=== PATIENT | female | born 1975 | race Caucasian/White ===

== ENCOUNTER 2019-12-25 10:57 | Inpatient (IN) | payer OTHER ==
[~2019-12-25] VITALS: Ht 157.5 cm; Wt 76.2 kg
[2019-12-25 11:10] VITALS: Ht 157.5 cm; Wt 76.2 kg
[2019-12-25 14:47] LABS: BASOPHIL % 1.6 % (0-2); PLATELET COUNT 193 x10^3mcL (130-400); RED CELL DISTRIBUTION WIDTH 13.4 % (11.5-14.5)
[2019-12-25 15:00] LABS: ALKALINE PHOSPHATASE 54 U/L (46-116); ALT/SGPT 15 U/L (14-59); AST/SGOT 5 U/L (15-37); BILIRUBIN TOTAL 0.8 mg/dL (0.20-1.00); CALCIUM 8.8 mg/dL (8.5-10.1); CARBON DIOXIDE 20.5 mmol/L (21-32); CHLORIDE SERUM 109 mmol/L (98-107); CREATININE SERUM 0.5 mg/dL (0.6-1.0); GFR1 > 60 mL/min; GLUCOSE SERUM 83 mg/dL (74-106); LIPASE 90 IU/L (73-393); POTASSIUM SERUM 3.5 mmol/L (3.5-5.1); SODIUM SERUM 142 mmol/L (136-145)
[2019-12-25 15:04] LABS: ALBUMIN 3.3 g/dL (3.4-5.0); TOTAL PROTEIN, SERUM 6.1 g/dL (6.4-8.2)
[2019-12-25 16:12] LABS: microscopic required? YES; urine erythrocyte 3+ (NEGATIVE)
[2019-12-25 16:18] LABS: CHOLESTEROL/HDL RATIO 2.9
[2019-12-25 16:40] LABS: AMPHETAMINE QUAL UR NONE DETECTED (See below)
[2019-12-25 17:24] LABS: T3 TOTAL 1.08 ng/mL
[2019-12-25 18:07] VITALS: BP 106/68
[2019-12-25 19:00] LABS: FREE T4 1.41 ng/dL (0.76-1.46); FREE THYROXINE INDEX 3.4 ug/dL (1.4-4.5); T4(THYROXINE) 11.2 ug/dL (4.7-13.3)
[2019-12-25 20:08] VITALS: BP 100/64
[2019-12-26 05:12] VITALS: BP 97/68
[2019-12-26 06:52] LABS: CARBON DIOXIDE 18.7 mmol/L (21-32); CHLORIDE SERUM 116 mmol/L (98-107); CREATININE SERUM 0.4 mg/dL (0.6-1.0); GFR1 > 60 mL/min; GLUCOSE SERUM 65 mg/dL (74-106); MAGNESIUM 1.5 mg/dL (1.8-2.4); PHOSPHOROUS 3.3 mg/dL (2.5-4.9); SODIUM SERUM 145 mmol/L (136-145)
[2019-12-26 07:34] LABS: PLATELET COUNT 150 x10^3mcL (130-400); RED CELL DISTRIBUTION WIDTH 12.5 % (11.5-14.5)
[2019-12-26 07:35] LABS: CALCIUM 6.5 mg/dL (8.5-10.1)
[2019-12-26 07:43] LABS: POTASSIUM SERUM 2.8 mmol/L (3.5-5.1)
[2019-12-26 09:27] VITALS: BP 95/61
[2019-12-26 13:37] LABS: BAND NEUTROPHIL 0 % (0-10); BASOPHIL 0 % (0-2); MONOCYTE 2 % (0-7); SEGMENTED NEUTROPHILS 53 % (37-75)
[2019-12-26 13:38] LABS: PLATELET MORPHOLOGY PLATELETS INCREASED; rbc morphology (normal/abnorm) ABNORMAL (NORMAL)
[2019-12-26 17:28] VITALS: BP 101/73
[2019-12-26 20:26] VITALS: BP 126/62
[2019-12-27 05:05] VITALS: BP 100/58
[2019-12-27 07:09] LABS: PLATELET COUNT 163 x10^3mcL (130-400); RED CELL DISTRIBUTION WIDTH 12.4 % (11.5-14.5)
[2019-12-27 07:17] LABS: CALCIUM 7.4 mg/dL (8.5-10.1); CARBON DIOXIDE 23.2 mmol/L (21-32); CHLORIDE SERUM 113 mmol/L (98-107); CREATININE SERUM 0.6 mg/dL (0.6-1.0); GFR1 > 60 mL/min; GLUCOSE SERUM 394 mg/dL (74-106); MAGNESIUM 1.6 mg/dL (1.8-2.4); PHOSPHOROUS 3.7 mg/dL (2.5-4.9); POTASSIUM SERUM 5.5 mmol/L (3.5-5.1); SODIUM SERUM 142 mmol/L (136-145)
[2019-12-27 07:55] VITALS: BP 97/63
[2019-12-27 12:14] VITALS: BP 98/70
[2019-12-27 12:42] LABS: BAND NEUTROPHIL 1 % (0-10); BASOPHIL 0 % (0-2); MONOCYTE 7 % (0-7); PLATELET MORPHOLOGY GIANT PLATELET SEEN; SEGMENTED NEUTROPHILS 37 % (37-75); rbc morphology (normal/abnorm) NORMAL (NORMAL)
[2019-12-27 17:18] VITALS: BP 99/62
[2019-12-27 19:20] VITALS: BP 95/57
[2019-12-28 05:11] VITALS: BP 92/56
[2019-12-28 06:28] LABS: BASOPHIL % 0.7 % (0-2); PLATELET COUNT 171 x10^3mcL (130-400); RED CELL DISTRIBUTION WIDTH 13.2 % (11.5-14.5)
[2019-12-28 06:40] LABS: CALCIUM 8.4 mg/dL (8.5-10.1); CHLORIDE SERUM 109 mmol/L (98-107); CREATININE SERUM 0.6 mg/dL (0.6-1.0); GFR1 > 60 mL/min; GLUCOSE SERUM 92 mg/dL (74-106); MAGNESIUM 1.9 mg/dL (1.8-2.4); PHOSPHOROUS 4.8 mg/dL (2.5-4.9); POTASSIUM SERUM 3.8 mmol/L (3.5-5.1); SODIUM SERUM 142 mmol/L (136-145)
[2019-12-28 08:25] VITALS: BP 100/61
== END 2019-12-28 11:53 | disposition left against medical advice (07) | DRG 378 ==
LOC: ED 10:57 → MU 15:40
PROVIDERS: Emergency Medicine; Internal Medicine Gastroenterology; ADMIT Student in an Organized Health Care Education/Training Program
PROC: 0DB68ZX Excision of Stomach, Via Natural or Artificial Opening Endoscopic, Diagnostic (ICD-10-PCS; principal; 2019-12-27 10:30)
DX: K29.71 Gastritis, unspecified, with bleeding (principal); E44.1 Mild protein-calorie malnutrition; Z68.45 Body mass index [BMI] 70 or greater, adult; D64.9 Anemia, unspecified; Z88.6 Allergy status to analgesic agent; Z88.5 Allergy status to narcotic agent; Z88.0 Allergy status to penicillin; Z88.2 Allergy status to sulfonamides; Z88.8 Allergy status to other drugs, medicaments and biological substances; Z90.49 Acquired absence of other specified parts of digestive tract
CPT/HCPCS: 43235; 74181; 83880; 84439; C9113; G0378; J2060; J2250; J2270; J2405; J3480; J3490; J7030; J7042; Q0092; Q9966